=== PATIENT | female | born 1960 | race Caucasian/White ===

== ENCOUNTER 2020-11-11 09:29 | Outpatient (CLI) | payer OTHER, SELFPAY ==
--- NOTE | ~2020-11-11 | US_ITS ---
EXAMINATION: US venous doppler [facility] DATE: 11/11/2020 10:16 INDICATION: Left lower limb pain. TECHNIQUE: Grayscale ultrasound images without and with compression and Doppler ultrasound images of the bilateral lower extremity veins were obtained. COMPARISON: None. FINDINGS: The visualized portions of right common femoral vein, profunda (deep) femoral vein, femoral vein, pop liteal vein, posterior tibial veins, peroneal veins, gastrocnemius vein and greater saphenous vein ou tflow are patent. The visualized portions of left common femoral vein, profunda femoral vein, femoral vein, popliteal v ein, posterior tibial veins, peroneal veins, gastrocnemius vein and greater saphenous vein outflow ar e patent. IMPRESSION: 1. No deep venous thrombosis in either lower limb. Reviewed, dictated and finalized at location A.
--- NOTE | ~2020-11-11 | XR_ITS ---
EXAMINATION: XR knee LT 3V DATE: 11/11/2020 10:22 INDICATION: Left knee pain TECHNIQUE: Weight bearing anteroposterior, sunrise, and flexed lateral views of the left knee were ob tained COMPARISON: None. FINDINGS: Alignment is normal. No fracture. Chondrocalcinosis at the medial and lateral compartments of the kne e. Joint spaces are otherwise normal. No joint effusion. Soft tissues are unremarkable. IMPRESSION: 1. Chondrocalcinosis at the medial and lateral compartments of the left knee. Reviewed, dictated and finalized at location A.
== END 2020-11-11 09:30 | disposition home or self-care (01) ==
LOC: ANHIMG 09:33
PROVIDERS: PCP Family Medicine; Visit Provider Nurse Practitioner Family
DX: M11.262 Other chondrocalcinosis, left knee (principal); M79.605 Pain in left leg
CPT/HCPCS: 73562; 93970

== ENCOUNTER → 2020-11-22 09:46 | Outpatient (CLI) | payer OTHER, SELFPAY ==
--- NOTE | ~2020-11-22 | MR_ITS ---
EXAMINATION: MR knee LT wo con DATE: 11/22/2020 10:54 INDICATION: Analyzed left knee pain and swelling with limited range of motion. TECHNIQUE: Magnetic resonance imaging (MRI) of the left knee was performed without intravenous contra st. Sequences included coronal PD-weighted FSE, coronal PD-weighted FS FSE, sagittal T2-weighted FSE , sagittal PD-weighted FS FSE and axial PD weighted fat saturated FSE. COMPARISON: None. FINDINGS: Medial compartment: Medial meniscus is normal. Articular cartilage is normal. Lateral compartment: Small longitudinal tear, likely horizontal, extending to contact the inferior articular surface near the free edge of the lateral meniscal body. Small region of cortical irregularity with underlying mil d subarticular cystic change and edema deep to a region of likely deep chondral fissuring at the cent ral weightbearing lateral femoral condyle. Additional partial thickness chondral ulceration and fissu ring with minimal underlying cortical irregularity at the posterior weightbearing lateral femoral con dyle. Patellofemoral compartment: Articular cartilage is normal. Ligaments and tendons: Anterior and posterior cruciate ligaments are normal. The medial collateral ligament and fibular cristofer ateral ligament complex are normal. The extensor mechanism is normal. The visualized medial and later al hamstring tendons as well as the iliotibial band are normal. There is feathery muscular edema in t he proximal 4 cm of the medial head of the gastrocnemius without discrete fluid signal intensity tear defect consistent with low-grade strain. Fluid: Physiologic amount of fluid in the joint space. No loose osteochondral bodies identified. There is a multilobulated fluid collection measuring up to 2.7 x 1.1 cm in maximal transaxial dimensions and ext ending 4.5 cm proximal to distal along the posterior margin of the proximal medial head of the gastro cnemius muscle which could represent hematoma/seroma related to muscle strain or potentially cephalad extension of a Ibanez's cyst with small component to the Ibanez's cyst seen originating more inferiorl y between the semimembranosus tendon and medial head of the gastrocnemius. Osseous/other: Bone alignment is normal. No fracture or pathologic marrow replacing process. IMPRESSION: 1. Low-grade strain of the proximal aspect of the medial head of the gastrocnemius. 2. Small tear, likely longitudinal horizontal at the inner free edge of the body of the lateral menis cus. 3. Mild osteoarthritis the lateral compartment with regions of high-grade chondromalacia along the ce ntral to posterior weightbearing lateral femoral condyle. 4. Ibanez's cyst. Reviewed, dictated and finalized at location A. IMPRESSION: 1. Low-grade strain of the proximal aspect of the medial head of the gastrocnem ius. 2. Small tear, likely longitudinal horizontal at the inner free edge of the bod y of the lateral meniscus. 3. Mild osteoarthritis the lateral compartment with regions of high-grade chond romalacia along the central to posterior weightbearing lateral femoral condyle. 4. Ibanez's cyst.
== END ==
PROVIDERS: PCP Family Medicine; Visit Provider Nurse Practitioner Family
DX: M23.8X2 Other internal derangements of left knee (principal); M79.605 Pain in left leg; M79.89 Other specified soft tissue disorders; S86.812A Strain of other muscle(s) and tendon(s) at lower leg level, left leg, initial encounter; S83.282A Other tear of lateral meniscus, current injury, left knee, initial encounter; M17.12 Unilateral primary osteoarthritis, left knee; M94.262 Chondromalacia, left knee; M71.22 Synovial cyst of popliteal space [Baker], left knee
CPT/HCPCS: 73721

== ENCOUNTER 2021-01-28 00:35 | Day surgery (SDC) | payer OTHER, SELFPAY ==
[2021-01-21 08:25] VITALS: BMI 21.3
[2021-01-28] VITALS (10 sets, daily range): BP systolic 103–136; BP diastolic 63–81; PULSE 61–77; RESP 10–20; TEMP 36.5–36.6; O2SAT 95–100; BMI 21.6
--- NOTE | 2021-01-28 08:29 | WPDANESEPPF ---
Anes - Initial Pre Proc Eval Procedure: Operation Date: 01/28/21 12:30 Proposed Procedures p Left Knee Arthroscopy, Partial Medial and Lateral Meniscectomy - Deven Baker MD Date/Time: 01/28/21 08:29 Surgeon: Deven Baker MD Pre Op Diagnosis: left medial & Lateral meniscus tears Patient Data Age: 60 Gender: F Height: 1.55 m Weight: 51.26 kg Allergies Allergy/AdvReac Type Severity Reaction Status Date / Time cefuroxime Allergy Severe Gastrointestinal Verified 01/21/21 08:22 Upset Home Medications Medication Instructions Recorded Confirmed Type diclofenac sodium 50 mg 50 mg PO BID #60 tablet 12/04/20 01/21/21 Rx tablet,delayed release hydrocodone 5 mg-acetaminophen 325 1 tablet PO Q4-6H PRN #30 tablet 01/06/21 01/21/21 Rx mg tablet MDD 6 ascorbic acid (vitamin C) [Vitamin 500 mg PO DAILY 01/21/21 01/21/21 History C] fexofenadine [Lamar] 180 mg PO DAILY 01/21/21 01/21/21 History vitamin B complex [B 1 tablet PO DAILY 01/21/21 01/21/21 History Complex-Vitamin B12] Patient hx anesthesia problems: none Family hx anesthesia problems: none Results Review: All pre-operative results and documents have been reviewed as part of the pre-operative evaluation. [facility] Past Medical History Medical History (Updated 01/28/21 @ 08:30 by Zachary Sagastume DO) Abnormal MRI, knee Anxiety about health BMI 22.0-22.9, adult Herpes zoster without complication Hx of cancer of lung 2014, chemo Screening for breast cancer Screening for diabetes mellitus Screening for osteoporosis Surgical History Surgical History (Updated 01/28/21 @ 08:30 by Zachary Sagastume DO) History of hysterectomy History of lobectomy of lung right upper 1/3 History of repair of left rotator cuff (~03/03/17) Family History Family History Mother Family history of transient ischemic attacks Sibling Family history of diabetes mellitus in first degree relative Father Family history of heart disease in male family member before age 55 Other Family history of malignant neoplasm Hypertension Social History Social History Smoking packs per day: 0.5 Smoking cigarettes per day: 10.0 Years smoked: 20 Smoking pack-years: 10.00 Smoking status: Former smoker Tobacco type: cigarettes Smoking end date: 04/26/15 Alcohol intake: current Alcohol use details: RARE Substance use: never Substance use type: does not use Living arrangements: with family 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 Informed Consent: The patient's anesthetic plan and its attendant risks and benefits were discussed with the patient/family/POA. Questions were solicited and answers provided to the satisfaction of the patient/family/POA.
--- NOTE | 2021-01-28 10:12 | WPDHPUPDATE1 ---
History and Physical Update Update Date/Time: 01/28/21 10:12 History and Physical has been reviewed, including an updated exam of the patient. There are NO changes in the patient's condition. Risks, benefits, and alternatives have been discussed and questions answered. Patient agrees to proceed with procedure.
[2021-01-28] MEDS: ACETAMINOPHEN 500 MG TABLET 1000 MG PO (11:11)
[2021-01-28] MEDS: KETOROLAC 15 MG/ML VIAL (*BKC) IV PUSH (11:11)
[2021-01-28] MEDS: LACTATED RINGERS 1,000 ML 30 ML IV CONT ×2 (11:11→13:53)
[2021-01-28] MEDS: ceFAZolin 2 GM/D5W 50 ML 2 GM/50 ML BAG IVPB (12:49)
--- NOTE | 2021-01-28 13:39 | W.PM.PROC2 ---
Procedure Note - Detailed Date of Procedure 01/28/21 Pre-op Diagnosis left medial & Lateral meniscus tears Post-op Diagnosis other (Left knee lateral meniscus tear 2. Medial synovial plica 3. Chondrocalcinosis.) Procedure Performed 1. Arthroscopic partial lateral meniscectomy 2. Arthroscopic medial synovial plica excision. Surgeon Deven Baker MD Inspector Wreath Samaria العلي PA-C Anesthesia general Indications Persistent knee pain. Primarily medial. MRI showed lateral tear and chondrocalcinosis. Findings Lateral meniscus tear of inner margin. Extensive chondrocalcinosis of menisci and degenerative meniscal tissue. However, no medial tear observable. Moderate sized medial synovial plica with evidence of chondral irritation on the corresponding femoral condyle. Minimal degenerative changes. Medial femur chondromalacia grade 1, medial tibia grade 1. Lateral femur chondromalacia grade 0, lateral tibia grade 0. Patellar grade 1, trochlea grade 0. Description of Procedure The patient was identified and the surgical site confirmed and signed in the preoperative holding area. Antibiotics were started per protocol. She was brought to the operative room and transferred to the OR table. A general anesthetic was administered. Supine position with the operative lower extremity position in the leg roy after placement of a well padded tourniquet. The leg support was lowered and the contralateral limb was supported with a soft bolster. The knee was prepped and draped in the usual sterile fashion. A time-out was performed. The portal sites were marked and infiltrated with 0.5% Marcaine 20 mL. The limb was exsanguinated and the tourniquet inflated to 300 mL Hg. Standard inferolateral and inferomedial portals were established. Inflow was obtained with the saline pump. The camera was introduced. Diagnostic inspection of the joint was accomplished. The lateral meniscus was debrided with the arthroscopic shaver and punches until stable. The medial meniscus showed changes described above, but no tearing. No loose bodies found. Only mild synovitis. There was a medial synovial plica which corresponded to her area of pain, and it appeared to be causing some injury to the femoral condyle cartilage, where there were focal grade 2 changes occurring. The plica was therefore excised. The arthroscopic instruments were removed. The tourniquet released and wounds closed with subcutaneous 4-0 Monocryl absorbable suture. Steri strips and a sterile dressing were applied. A light elastic wrap was placed. The patient was extubated and brought to the recovery room in stable condition. Estimated Blood Loss 5 Drains No Complications No immediate complications Condition stable Disposition PACU
== END 2021-01-28 16:00 | disposition home or self-care (01) ==
PROVIDERS: PCP Family Medicine; Visit Provider Orthopaedic Surgery
PROC: (CPT 29870; principal; 2021-01-28 12:30)
DX: S83.282A Other tear of lateral meniscus, current injury, left knee, initial encounter (principal); M11.262 Other chondrocalcinosis, left knee; X50.0XXA Overexertion from strenuous movement or load, initial encounter; Z85.118 Personal history of other malignant neoplasm of bronchus and lung; Z92.21 Personal history of antineoplastic chemotherapy; Z90.2 Acquired absence of lung [part of]; Z87.891 Personal history of nicotine dependence
CPT/HCPCS: 29881; A9270; J0690; J1885; J2250; J2270; J7120

== ENCOUNTER 2021-05-24 17:49 | Emergency (ER) | payer OTHER, SELFPAY ==
--- NOTE | ~2021-05-24 | CT_ITS ---
EXAMINATION: CT cervical spine wo con DATE: 05/24/2021 18:54 INDICATION: Left hand paresthesias TECHNIQUE: Computed tomography (CT) of the cervical spine was performed without intravenous contrast. Automated exposure control and iterative reconstruction technique were employed. Exam dose: 114.83 mGy-cm total exam DLP. COMPARISON: None FINDINGS: There is prominent reversal of cervical curvature. C1 and C2 are normally aligned and the odontoid process is intact. No fracture or dislocation or lock ed facet or prevertebral soft tissue swelling. There is mild degenerative disc disease at C3-4 and C4-5. There is severe degenerative disc disease and prominent posterior spurring at C5-6 and C6-7. There is degenerative change at the apophyseal joints, especially in the upper and mid cervical spine bilaterally. There is very prominent spurring at the uncovertebral joints at C5-6 and C6-7 encroaching upon the C6 and C7 neural foramina bilaterally. Bilateral cervical ribs, the left cervical rib fused distally with the left first rib.. Incidentally noted is emphysematous change of the included upper lungs. IMPRESSION: Prominent reversal of cervical curvature Extensive cervical spondylosis as indicating greater detail above No fracture or dislocation, locked facet or prevertebral soft tissue swelling Reviewed, dictated and finalized at Location [facility]. Reviewed, dictated and finalized at location A. Y MACHINE OPERATOR
--- NOTE | ~2021-05-24 | CT_ITS ---
EXAMINATION: CT brain wo con DATE: 05/24/2021 18:54 INDICATION: Dizziness. Lightheadedness. Left upper extremity paresthesias. TECHNIQUE: Computed tomography (CT) of the head was performed without intravenous contrast. The mA wa s adjusted according to patient size. Iterative reconstruction technique was employed. Exam dose: 60 5.33 mGy-cm total exam DLP. COMPARISON: None FINDINGS: Bilateral carotid siphon internal carotid artery calcifications. No intracranial mass lesion or hemorrhage or cerebrovascular accident. No midline shift or mass effec t effect. No subdural or epidural hematoma. No fracture or bone destruction of the cranial vault. The mastoid air cells and included paranasal si nuses are normally developed and aerated. IMPRESSION: Intracranial atherosclerosis No acute intracranial abnormality Reviewed, dictated and finalized at Location [facility]. Reviewed, dictated and finalized at location A. ICAL SCIENCES PROFESSOR
--- NOTE | ~2021-05-24 | XR_ITS ---
XR chest 2V DATE: 05/24/2021 18:46 INDICATION: Chest pain TECHNIQUE: PA and lateral views COMPARISON: 09/14/2018 PA chest FINDINGS: Normal heart size. There is aortic unfolding. No hilar or mediastinal enlargement is eviden t. There is bilateral apical capping. There is chronic mild tenting of the right leaf of the diaphrag m. History right upper lobectomy. No pulmonary infiltrate or consolidation, pleural effusion or pulmonar y vascular congestion or pneumothorax is detected. There is degenerative disc disease in the lower cervical spine. There is diffuse osteopenia. IMPRESSION: No active cardiopulmonary disease or significant change since 09/14/2018 Reviewed, dictated and finalized at location A. ICATION SECURITY ARCHITECT IMPRESSION: No active cardiopulmonary disease or significant change since 2018
--- NOTE | ~2021-05-24 | CT_ITS ---
EXAMINATION: CTA chest PE protocol DATE: 05/24/2021 19:49 INDICATION: Chest pain. Elevated d-dimer. TECHNIQUE: Computed tomography angiography (CTA) of the chest was performed with 100 mL Omnipaque-350 intravenous contrast timed to evaluate the pulmonary arteries. Coronal maximum intensity projection 3D-reconstructions were created by the technologist. Automated exposure control and iterative reconst ruction technique were employed. Exam dose: 132.60 mGy-cm total exam DLP. COMPARISON: 05/24/2021 2 view chest FINDINGS: There is diagnostic contrast enhancement of the pulmonary arteries and no evidence of pulmo nary embolism. No thoracic aortic aneurysm or dissection. Normal heart size. No hilar or mediastinal mass lesion or lymphadenopathy. Status post right upper lobe resection. There are emphysematous changes. No pulmonary infiltrate or c onsolidation or pulmonary mass lesion is evident. Prominent degenerative disc disease in lower cervical spine. No suspicious osteolytic or osteoblastic lesions. IMPRESSION: No evidence of pulmonary embolism Status post right upper lobectomy Emphysema Reviewed, dictated and finalized at [facility]. Reviewed, dictated and finalized at location A. GLE CATCHER
[2021-05-24 17:52] VITALS: BP 168/95; PULSE 87; RESP 16; TEMP 36.4; O2SAT 100
--- NOTE | 2021-05-24 17:52 | ECG_ITS ---
Measurements Intervals [place] Rate: 74 P: 57 [place]: 126 QRS: 64 QRSD: 94 T: 53 QT: 381 QTc: 423 Interpretive Statements SINUS RHYTHM INCOMPLETE RIGHT BUNDLE BRANCH BLOCK BORDERLINE ST-T WAVE ABNORMALITY- ANTEROLAT/INF LEADS BASELINE ARTIFACT- AVR, AVL, V1 BORDERLINE ECG Electronically Signed On 05-24-2021 20:38:38 LINING SEWER by Viet Mayo D.O.
[2021-05-24 18:09] VITALS: BP 155/94; PULSE 76; RESP 20; O2SAT 99
[2021-05-24 18:21] VITALS: PULSE 76
[2021-05-24 18:22] VITALS: O2SAT 100
[2021-05-24 18:27] LABS: Basophils Percent Auto 0.2 % (0.2-1.2); Eosinophils Percent Auto 0.4 % (0-4.4); Hematocrit 37.5 % (37.0-47.0); Hemoglobin 12.5 g/dL (12.0-15.0); Immature Granulocyte Absolute 0.02 K/mm3 (0.00-0.031); Immature Granulocyte Percent A 0.4 % (0-0.5); Lymphocytes Absolute Auto 1.38 K/mm3 (0.9-3.2); Mean Corpuscular HGB Conc 33.3 g/dl (32-36); Mean Corpuscular Hemoglobin 30.2 pg (26-34); Mean Corpuscular Volume 90.6 fl (80-100); Mean Platelet Volume 8.9 fl (7.4-10.4); Monocytes Absolute Auto 0.3 K/mm3 (0.1-0.6); Monocytes Percent Auto 6.7 % (2.6-8.5); Neutrophils Absolute Auto 3.2 K/mm3 (1.3-6.7); Neutrophils Percent Auto 64.3 % (45.5-73.1); Platelet Count Result 274 k/mm3 (150-375); Red Blood Count 4.14 M/mm3 (4.2-5.4); Red Cell Distribution Width 13.9 % (11.5-14.5); White Blood Count 4.9 K/mm3 (4.5-10.0)
[2021-05-24] MEDS: ASPIRIN 81 MG CHEWABLE TABLET 324 MG PO (18:27)
[2021-05-24 18:36] LABS: INR 0.9; Prothrombin Time 11.6 Seconds (11.1-14.7)
[2021-05-24 18:37] LABS: Partial Thromboplastin Time 28.8 SECONDS (22.3-36.8)
[2021-05-24 18:41] LABS: Alanine Aminotransferase 18 U/L (4-35); Alkaline Phosphatase 69 U/L (38-126); Anion Gap 7 mmol/L (8-16); Aspartate Amino Transferase 27 U/L (14-36); Bilirubin,Total 0.4 mg/dL (0.2-1.3); Blood Urea Nitrogen 7 mg/dL (7-17); Calcium 10.1 mg/dL (8.4-10.2); Carbon Dioxide 29 mmol/L (22-30); Chloride 99 mmol/L (98-107); Estimated CRCL calculation 65 ml/min; Estimated Glomerular Filt Rate > 60; Glucose 103 mg/dL (65-110); Lipase 84 U/L (23-300); Potassium 3.2 mmol/L (3.4-5.0); Sodium 135 mmol/L (137-145)
[2021-05-24 18:47] LABS: D Dimer 2.24 ug/mL (<0.48)
--- NOTE | 2021-05-24 18:48 | ED.CHESTPAIN ---
HPI - Chest Pain General Chief Complaint: Chest Pain Stated Complaint: chest pain Time Seen by Provider: 05/24/21 18:29 Source: patient Mode of arrival: ambulatory Limitations: no limitations History of Present Illness HPI narrative: This is a 60 year old female that presents to the ER with multiple complaints. Reports over the last couple of days she has had several dizzy spells. Reports she has sudden onset of room spinning dizziness that lasts very briefly. Also reports this morning she started to have chest tightness and pain in her upper back. Reports over the last couple of hours she has noted tingling in her left fingers. Also reports a headache. Denies fever, vision changes, shortness of breath, vomiting, lower extremity edema, numbness or weakness. Related Data Home Medications Medication Instructions Recorded Confirmed ascorbic acid (vitamin C) [Vitamin 500 mg PO DAILY 01/21/21 04/10/21 C] vitamin B complex [B 1 tablet PO DAILY 01/21/21 04/10/21 Complex-Vitamin B12] azelastine INTRANASAL 05/24/21 clobetasol TOPICAL 05/24/21 Allergies Allergy/AdvReac Type Severity Reaction Status Date / Time cefuroxime Allergy Severe Gastrointestinal Verified 05/24/21 18:16 Upset Review of Systems Review of Systems: CONSTITUTIONAL: Denies fever EYES: Denies visual changes CARDIOVASCULAR: Reports chest pain. Denies edema. RESPIRATORY: Denies cough or dyspnea. GASTROINTESTINAL: Denies vomiting MUSCULOSKELETAL: Reports back pain, joint pain, and myalgia. NEUROLOGIC: Reports headache. Denies numbness, or weakness. All systems reviewed & are unremarkable except as noted in HPI and below PMFSH Past Medical History Medical History Abnormal MRI, knee Anxiety about health BMI 22.0-22.9, adult Herpes zoster without complication Hx of cancer of lung 2014, chemo Screening for breast cancer Screening for diabetes mellitus Screening for osteoporosis Surgical History Surgical History History of hysterectomy History of lobectomy of lung right upper 1/3 History of meniscectomy of left knee (~01/28/21) Partial Medial & Lateral History of repair of left rotator cuff (~03/03/17) Family History Family History Mother Family history of transient ischemic attacks Sibling Family history of diabetes mellitus in first degree relative Father Family history of heart disease in male family member before age 55 Other Family history of malignant neoplasm Hypertension Social History Social History Smoking packs per day: 0.5 Smoking cigarettes per day: 10.0 Years smoked: 20 Smoking pack-years: 10.00 Smoking status: Former smoker Tobacco type: cigarettes Smoking end date: 04/26/15 Alcohol intake: current Alcohol use details: RARE Substance use: never Substance use type: does not use 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 HEAD: Normocephalic, atraumatic. EYES: PERRLA and EOMI. ENT: Nares clear, no rhinorrhea or epistaxis. Mucous membranes moist. Oropharynx without tonsillar hypertrophy exudate or other lesions. Bilateral TMs pearly vargas non-bulging NECK: Supple. No adenopathy or masses. CHEST: Clear to auscultation. No respiratory distress. No wheezes rales or rhonchi HEART: Regular rate and rhythm. No murmur heard. Normal peripheral pulses. ABDOMEN: Soft, nontender, nondistended, normal active bowel sounds. EXTREMITIES: Normal range of motion. No edema. Strength equal in bilateral upper and lower extremities (5/5) SKIN: Warm, dry, no rash. NEURO: No focal d
[2021-05-24 18:53] LABS: Troponin I < 0.012 ng/mL (0.000-0.034)
[2021-05-24] MEDS: SODIUM CHLORIDE 0.9% IV 500 ML 999 ML IV CONT (19:03)
[2021-05-24] MEDS: ONDANSETRON INJ 4 MG/2 ML VIAL IV PUSH (19:03)
[2021-05-24] MEDS: MECLIZINE HCL 25 MG TABLET PO (19:04)
[2021-05-24] MEDS: POTASSIUM CHLORIDE 20 MEQ PACKET (FOR LIQUID) 40 MEQ PO (19:04)
--- NOTE | 2021-05-24 19:12 | PC.NURSE ---
Medications given IV and po. Report to CORI Liu, to continue care.
[2021-05-24] MEDS: diazePAM INJ (*CRX) 10 MG/2 ML SYRINGE 5 MG IV PUSH (20:28)
[2021-05-24 20:37] VITALS: BP 130/92; PULSE 87; RESP 15; O2SAT 97
[2021-05-24 21:40] LABS: Troponin I < 0.012 ng/mL (0.000-0.034)
[2021-05-24 21:55] LABS: SARS-CoV-2 RNA PCR Negative
[2021-05-24 22:20] VITALS: PULSE 76; RESP 18; O2SAT 98
== END 2021-05-24 23:05 | disposition home or self-care (01) ==
PROVIDERS: Physician Assistant; Emergency Provider Emergency Medicine; PCP Family Medicine
DX: R42 Dizziness and giddiness (principal); R20.2 Paresthesia of skin; M62.838 Other muscle spasm; E87.6 Hypokalemia; Z20.822 Contact with and (suspected) exposure to COVID-19; Z85.118 Personal history of other malignant neoplasm of bronchus and lung; Z92.21 Personal history of antineoplastic chemotherapy; Z90.2 Acquired absence of lung [part of]; Z87.891 Personal history of nicotine dependence; I45.10 Unspecified right bundle-branch block; R94.31 Abnormal electrocardiogram [ECG] [EKG]; J43.9 Emphysema, unspecified
CPT/HCPCS: 36415; 70450; 71046; 71275; 72125; 80053; 83690; 84484; 85025; 85380; 85610; 85730; 93005; 96361; 96365; 96375; 99284; A9270; C9803; J0131; J2405; J3360; J7040; Q9967; U0003; U0005

== ENCOUNTER → 2022-12-02 13:07 | Outpatient (CLI) | payer OTHER, SELFPAY ==
--- NOTE | ~2022-12-02 | XR_ITS ---
Right Shoulder Technique: AP and axillary views were obtained. Clinical History: Pain Findings: No fracture or dislocation is seen. Osseous alignment is anatomic. The glenohumeral and acr omioclavicular joint spaces are preserved. Soft tissues are unremarkable. Impression: Unremarkable right shoulder radiographs. Reviewed, dictated and finalized at [facility] [place]. Impression: Unremarkable right shoulder radiographs.
== END ==
PROVIDERS: PCP Family Medicine; Visit Provider Nurse Practitioner Family
DX: M25.511 Pain in right shoulder (principal)
CPT/HCPCS: 73030

== ENCOUNTER 2023-05-27 14:34 | Outpatient (CLI) | payer BC, SELFPAY ==
--- NOTE | ~2023-05-27 | XR_ITS ---
XR shoulder RT min 2V DATE: 05/27/2023 14:52 INDICATION: Right shoulder pain for 2 weeks. No known injury. TECHNIQUE: 5 views COMPARISON: 12/02/2022 right shoulder FINDINGS: Bilateral degenerative disc disease and prominent uncovertebral joint spurring is noted at C6-7 and C7-T1. Osteopenia. No fracture or dislocation, periosteal reaction or bone destruction or abnormal soft tissue calcifica tion of the right shoulder. Acromioclavicular and glenohumeral joint spaces appear intact. No abnorma l right shoulder calcification. Partial right lung resection. IMPRESSION: Osteopenia No fracture or dislocation or bone destruction of the right shoulder Degenerative disc disease and uncovertebral joint spurring at C6-7 and C7-T1 Reviewed, dictated and finalized at location L. WARE DESIGN ANALYST
== END 2023-05-27 14:35 | disposition home or self-care (01) ==
PROVIDERS: PCP Family Medicine; Visit Provider Orthopaedic Surgery
DX: M85.811 Other specified disorders of bone density and structure, right shoulder (principal); M50.323 Other cervical disc degeneration at C6-C7 level; M51.34 Other intervertebral disc degeneration, thoracic region
CPT/HCPCS: 73030

== ENCOUNTER 2023-07-19 07:32 | Outpatient (CLI) | payer BC, SELFPAY ==
--- NOTE | ~2023-07-19 | MR_ITS ---
EXAMINATION: MR shoulder RT wo con DATE: 07/19/2023 08:14 INDICATION: Right shoulder impingement syndrome TECHNIQUE: Magnetic resonance imaging (MRI) of the right shoulder was performed without intravenous c ontrast. Sequences included axial PD-weighted FS FSE, coronal oblique PD-weighted FS FSE, coronal obl ique T2-weighted FS FSE, sagittal PD-weighted FS FSE, and sagittal T1-weighted SE. COMPARISON: None. FINDINGS: Coracoacromial arch: The acromion undersurface is curved in morphology (type II). The coracoacromial ligament is normal. M oderate acromioclavicular osteoarthritis. Rotator cuff: The supraspinatus, infraspinatus and teres minor tendons are normal. [Subscapularis tendinopathy with out discrete tear. Normal rotator cuff muscle bulk and signal. Biceps tendon, glenoid labrum and glenohumeral cartilage: Long head of the biceps tendon is normal. There is a tear at the base of the 10:00-11:00 position of the posterosuperior glenoid labrum. There is possible additional small tear versus normal sublabral f oramen at the anterosuperior glenoid. Glenohumeral cartilage is normal. Fluid: Physiologic amount of fluid in the glenohumeral joint and biceps tendon sheath. No loose osteochondr al bodies. Small amount of fluid in the subacromial/subdeltoid bursa consistent with mild bursitis. T here is a moderate-sized ganglion cyst extending for 3.2 cm from anterior inferiorly from the anterio r margin of the coracoid process which measures up to 1.1 x 1.6 cm in maximal orthogonal dimensions t his likely represents extension from an additional 5 x 5 x 3 mm ganglion cyst along the posterior mar gin of the coracoid process which appears to extend along the coracohumeral ligament. This could pote ntially represent para labral cysts related to the suspected tear of the anterosuperior labrum. Bones: Normal marrow signal with no edema, fracture or abnormal marrow replacing process. IMPRESSION: 1. Tear of the posterosuperior labrum and separate likely additional small tear at the anterosuperior labrum with differential for the latter including a normal sublabral foramen. There is a ganglion cy st potentially representing a para labral cyst arising from the suspected anterosuperior tear which t racks along the coracohumeral ligament and 3.2 cm further caudally from the anterior margin of the co racoid process. 2. Mild subscapular tendinopathy without tear. 3. Moderate acromioclavicular osteoarthritis and mild underlying subacromial/subdeltoid bursitis. Reviewed, dictated and finalized at location A. IMPRESSION: 1. Tear of the posterosuperior labrum and separate likely additional small tear at the anterosuperior labrum with differential for the latter including a norm al sublabral foramen. There is a ganglion cyst potentially representing a para labral cyst arising from the suspected anterosuperior tear which tracks along t he coracohumeral ligament and 3.2 cm further caudally from the anterior margin of the coracoid process. 2. Mild subscapular tendinopathy without tear. 3. Moderate acromioclavicular osteoarthritis and mild underlying subacromial/orourke bdeltoid bursitis.
== END 2023-07-19 07:33 | disposition home or self-care (01) ==
LOC: ANHIMG 07:34
PROVIDERS: PCP Family Medicine; Visit Provider Orthopaedic Surgery
DX: M75.41 Impingement syndrome of right shoulder (principal); M19.011 Primary osteoarthritis, right shoulder
CPT/HCPCS: 73221

== ENCOUNTER 2023-11-02 01:53 | Day surgery (SDC) | payer BC, SELFPAY ==
[2023-10-25 11:29] VITALS: BMI 20.6
--- NOTE | 2023-10-25 11:37 | PC.NURSE ---
Report to the Outpatient Waiting Room, entrance under the green pavilion located off [facility], at time _0630_ on date _[id number]_. Planned Procedure Time: _0830_. Time changes happen often and if your time is changed the preop area will call you the afternoon before. - You and your visitor will be asked to self-screen and do not enter if you have any COVID symptoms. - A mask is optional within the hospital at this time. Patients may have clear liquids (water, carbonated beverages, clear teas, apple juice) until 3 hours prior to surgery with a maximum of 20 ounces. - No food from midnight until time of surgery Take the following medications with a SIP of water the morning of surgery: ____None DO NOT STOP ANY OF YOUR OTHER PRESCRIPTION MEDICATIONS PRIOR TO SURGERY ?EXCEPT THE FOLLOWING Medications to discontinue per physician Vitamins Date to take last [id number] Please no make-up, nail luxembourgish, hairspray, perfume, deodorant, or body powder the day of surgery. No jewelry (including any body piercings) or valuables the day of surgery, leave them at home. Please take a shower or bath the night before, or the morning of, surgery with an antibacterial soap. Wear comfortable, loose fitting clothing. - Jewelry must be removed prior to entering the operating room. Rings and piercings that are not removed may be cut off. - The hospital will not accept responsibility for valuables. - Please leave all valuables, including medications, at home the day of surgery. If you are going home after surgery, a licensed [facility] driver must drive you home. - NO public transportation without another adult if you receive anesthesia. - We recommend that an adult stay with you for 24 hours following discharge. - We also recommend that you do not drive, make important decision, drink alcoholic beverages, or take any drugs that were not prescribed by your health care provider for at least 24 hours after your discharge time. Follow any additional instructions given to you from your surgeon. If you or anyone in your household have experienced Covid symptoms in the past week, please notify your surgeon or the nurse liaison at the phone number below for possible testing. Telephone instructions given to __Socorro__and asked if any additional questions and then verbalized understanding. Patient advised to call surgeon office or pre surgery nurse liaison [phone] if any additional questions.
--- NOTE | 2023-11-01 13:13 | P.PNAN_ITS ---
Anes - Initial Pre Proc Eval Procedure: Operation Date: 11/02/23 08:30 Proposed Procedures p Right Shoulder Arthroscopic Labral Debridement, Cyst and Subacromial Decompression - Deven Baker MD Date/Time: 11/01/23 13:13 Surgeon: Deven Baker MD Pre Op Diagnosis: right shoulder superior glenoid labral tear Patient Data Age: 62 Gender: F Height: 1.55 m Weight: 49.5 kg Allergies Allergy/AdvReac Type Severity Reaction Status Date / Time cefuroxime AdvReac Severe Gastrointestinal Verified 11/02/23 07:03 Upset Home Medications Medication Instructions Recorded Confirmed Type ascorbic acid (vitamin C) 500 mg 500 mg PO DAILY 01/21/21 10/25/23 History tablet (Vitamin C) vitamin B complex (B 1 tablet PO DAILY 01/21/21 10/25/23 History Complex-Vitamin B12 tablet) clobetasol 0.05 % scalp solution 1 applic topical DAILY 05/24/21 10/25/23 History Patient hx anesthesia problems: none Family hx anesthesia problems: none Results Review: All pre-operative results and documents have been reviewed as part of the pre- operative evaluation. [facility], [facility] Past Medical History Medical History Abnormal MRI, knee Anxiety about health BMI 20.0-20.9, adult BMI 22.0-22.9, adult Herpes zoster without complication Hx of cancer of lung 2014, chemo Screening for breast cancer Screening for diabetes mellitus Screening for osteoporosis Urinary tract infection Surgical History Surgical History History of hysterectomy History of lobectomy of lung right upper 1/3 History of meniscectomy of left knee (~01/28/21) Partial Medial & Lateral History of repair of left rotator cuff (~03/03/17) Family History Family History Mother Family history of transient ischemic attacks Diabetes mellitus Sibling Family history of diabetes mellitus in first degree relative Diabetes mellitus Heart disease Father Family history of heart disease in male family member before age 55 Heart disease Diabetes mellitus Thyroid activity decreased Other Family history of malignant neoplasm Hypertension Social History Social History Smoking packs per day: 0.5 Smoking cigarettes per day: 10.0 Years smoked: 30 Smoking pack-years: 15.00 Smoking status: Former smoker Tobacco type: cigarettes Smoking end date: 10/24/13 Alcohol intake: current Alcohol use details: RARE Substance use: never Substance use type: does not use Do You Feel Safe in your Home?: Yes Lack of Transportation: No Lack of Food: Never True Current Housing: I Have Housing Concerned About Future Housing: No Difficulty Paying Gas/Electric Bills: No Difficulty Paying for Meds: No Currently Unemployed: No Education: Associate Degree Difficulty w/ Childcare or Family Care: No Living arrangements: with family Occupation/Education: occupation 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 Informed Consent: The patient's anesthetic plan and its attendant risks and benefits were discussed with the patient/family/POA. Questions were solicited and answers provided to the satisfaction of the patient/family/POA.
[2023-11-02] VITALS (8 sets, daily range): BP systolic 121–153; BP diastolic 77–98; PULSE 57–82; RESP 14–17; TEMP 36.3–36.9; O2SAT 100; BMI 19.8
[2023-11-02] MEDS: KETOROLAC 15 MG/ML VIAL (*BKC) IV PUSH (07:13)
[2023-11-02] MEDS: ACETAMINOPHEN 500 MG TABLET 1000 MG PO (07:13)
[2023-11-02] MEDS: LACTATED RINGERS 1,000 ML 30 ML IV CONT ×2 (07:21→10:11)
--- NOTE | 2023-11-02 07:50 | WPDHPUPDATE1 ---
History and Physical Update Update Date/Time: 11/02/23 07:50 History and Physical has been reviewed, including an updated exam of the patient. There are NO changes in the patient's condition. Risks, benefits, and alternatives have been discussed and questions answered. Patient agrees to proceed with procedure.
--- NOTE | 2023-11-02 07:59 | WPDANESPNB ---
Anes - Peripheral Nerve Block Date/Time: 11/02/23 07:59 I have discussed with the patient/family/POA the placement of a peripheral nerve block for post-operative pain management, including associated risks, benefits, complications, and side effects. Alternative methods of post-operative analgesia were detailed. Questions were solicited and answers provided to the satisfaction of the patient/family/POA. Time-Out: A pre-procedural Time-Out was completed immediately before starting the procedure and confirmed: Patient Identification, Site, Procedure, Patient Position and the Availability of Requisite Equipment. Clinical Indications: Acute post-operative pain management requested by the operative surgeon. Nerve Block Insertion Note Anes-nerve block: interscalene right Patient position: supine Skin prep: chlorhexidine Needle: 22 gauge, stimulating, insulated echogenic needle. Needle length: 50 mm Technique: ultrasound Injectate: bupivacaine 0.5% with epi 5 mcg/ml (30cc- no epi) Observations: tolerated well Complications: none Procedure start time:: 0750 Procedure end time:: 754
[2023-11-02] MEDS: CLINDAMYCIN 900 MG/D5W 50 ML 900 MG/50 ML PIGGYBACK 50 MG IVPB (08:30)
[2023-11-02] MEDS: EPINEPHrine HCL INJ 1 MG/ML AMPUL 3 MG IRRIGATION (09:17)
--- NOTE | 2023-11-02 10:20 | P.OP_ITS ---
Procedure Note - Detailed Date of Procedure 11/02/23 Pre-op Diagnosis Right shoulder superior glenoid labral tear. Post-op Diagnosis Other (Right shoulder 1. Partial thickness rotator cuff tear 2. Subacromial impingement 3. SLAP tear with labral cyst ) Procedure Performed Right shoulder 1. Arthroscopic rotator cuff repair 2. Arthroscopic subacromial decompression 3. Arthroscopic biceps tenodesis 4. Arthroscopic labral labral debridement with cyst excision Surgeon Deven Baker MD Cracking Machine Operator Samaria العلي PA-C Anesthesia General and Regional ( interscalene block) Indications Severe, debilitating anterior shoulder pain with large anterior labral cyst, extending atypically medial to the coracoid. Associated labral tears and tendinosis noted also on the MRI. Failed conservative treatment with injection and therapy. Findings Mid grade (30%) partial thickness supraspinatus cuff tear. A2 articular and B1 bursal side. Treated optimally with Regeneten collagen implant with 4 CARMEN soft tissue anchors and 2 Peek bone anchors. Unstable SLAP tear with anterior labral extension. Consistent with MRI findings of a large anterior paralabral cyst extending anterior and medial. This was debrided and the cyst decompressed. Quirino ps tenodesis performed arthroscopically with a Swivel lock anchor. Clear evidence for subacromial impingement with notable fraying of the anterolateral acromion and CA ligament with a lesion on the bursal side cuff, treated with decompression. There was thickening of the bursa anteriorly contiguous with the rotator interval tissue, which was partially excised. The articular cartilage was healthy. Description of Procedure Preoperative antibiotics were given. An interscalene block was administered in the preoperative area. The patient was bought brought to the operating room. A general anesthetic was administered. The patient was carefully positioned in the [beach chair] position. The head and neck were carefully positioned. The non operative extremity was also carefully positioned. The shoulder was prepped and draped in the usual sterile fashion. Examination was performed without abnormal findings. Very small stature. Standard posterior and anterior arthroscopic portals were established. Inflow achieved with the arthroscopic pump using saline and epinephrine. The glenohumeral joint was carefully inspected. The SLAP tear and labral tears were identified and debrided. The anterior defect was probed deeply and decompressed with suction and milking the subcutaneous anterior cyst extension. The biceps anchor was unstable and degenerative. Arthroscopic biceps tenodesis was performed, and the tendon released from the labrum. The RF probe was also utilized to stabilize the labrum. The subscapularis showed minimal superior fraying. The articular supraspinatus was torn to about 20 percent. The cable was intact and the tissue was otherwise healthy in appearance. Attention was turned to the subacromial space. A complete bursectomy was performed. The rotator cuff and footprint were lightly debrided. A modest acromioplasty was performed. The low grade bursal tear was debrided and the Regeneten implant introduced to cover the supraspinatus footprint. Two additional portals were utilized. The implant was fixed with 4 CARMEN soft tissue anchors and 2 Peek bone anchors. The arthroscopic instruments were removed. The wounds were closed with 3-0 Monocryl subcuticular suture and steri strips. There were no complications. A sling was applied and the patient brought to the recovery room. Physician facilities maintenance assistant, Samaria العلي PA-C, required for surgery; including patient positioning, draping, arthroscopic camera operation, maintaining instrument position, suture retrieval, implant insertion, wound closure, and dressing and sling placement. Implants Regeneten collagen implant. 4 CARMEN soft tissue anchors, 2 Peek bone anchors. 4.75 Swivel lock anchor. Estimated Blood Loss 10 Pathology None sent Complications No immediate complications Condition Stable Disposition PACU [facility] Billing Surgery - Charge Forward: Surgery Billing
--- NOTE | 2023-11-02 12:00 | SUR.PHASEII ---
1140 SMALL RED BRUISE TO LEFT CHEEK AND VERY SMALL BRUISE TO LEFT NECK. WHEN ASSISTING PATIENT GET DRESSED, LARGE RED-PURPLE BRUISE NOTED TO MIDLINE SLIGHTLY RIGHT UPPER CHEST. DR. CUENCA NOTIFIED. KEVIN Valenzuela CAME OUT OF OR TO CHECK PATIENT, TOOK PHOTOS AND MARKED OUTLINE OF BRUISING. DR. CUENCA OKAY'D FOR PATIENT TO GO HOME. PATIENT EAGER TO GO HOME.
== END 2023-11-02 12:14 | disposition home or self-care (01) ==
PROVIDERS: PCP Family Medicine; Visit Provider Orthopaedic Surgery
PROC: (CPT 29805; principal; 2023-11-02 08:30)
DX: S43.431A Superior glenoid labrum lesion of right shoulder, initial encounter (principal); M75.41 Impingement syndrome of right shoulder; M67.411 Ganglion, right shoulder; M75.111 Incomplete rotator cuff tear or rupture of right shoulder, not specified as traumatic; Z85.118 Personal history of other malignant neoplasm of bronchus and lung; Z87.891 Personal history of nicotine dependence; G89.18 Other acute postprocedural pain
CPT/HCPCS: 64415; 29827; 29828; 29826; A4565; A9270; C1713; J0171; J1100; J1885; J2250; J2405; J2704; J3010; J7120

== ENCOUNTER 2024-05-13 08:47 | Outpatient (CLI) | payer BC, SELFPAY ==
--- NOTE | ~2024-05-13 | MR_ITS ---
EXAMINATION: MR shoulder RT wo con DATE: 05/13/2024 09:44 INDICATION: Anterior right shoulder pain. TECHNIQUE: Magnetic resonance imaging (MRI) of the right shoulder was performed without intravenous c ontrast. Sequences included axial PD-weighted FS FSE, coronal oblique PD-weighted FS FSE and T2-weigh marleny FS FSE, and sagittal oblique T2-weighted FS FSE and T1-weighted FSE. COMPARISON: Right shoulder MRI 07/19/2023, radiographs 05/27/2023 FINDINGS: Coracoacromial arch: The acromion undersurface is flat in morphology (type I). There is severe acromioclavicular joint ost eoarthritis. There is mild subacromial/subdeltoid bursitis. Rotator cuff: There is mild supraspinatus and infraspinatus tendinopathy. There is an articular sided partial thick ness tear of supraspinatus and infraspinatus tendons measuring 11 mm anterior to posterior by 14 mm p roximal to distal by 40% tendon thickness. There is bursal-sided fraying of supraspinatus and infrasp inatus tendons. Teres minor tendon is normal. Subscapularis tendon is normal. There is no asymmetric fatty atrophy of the rotator cuff muscle bellies. Biceps tendon and glenoid labrum: Biceps tendon is in bicipital groove. There are changes of biceps tenodesis with screw. There is a te ar of superior glenoid labrum from 10:00 to 2:00 (SLAP tear). Fluid: There is no glenohumeral joint effusion. Bones/cartilage: Glenoid cartilage is normal. Humeral head cartilage is normal. IMPRESSION: 1. Partial thickness rotator cuff tear. 2. Severe acromioclavicular joint osteoarthritis. 3. Biceps tenodesis. 4. SLAP tear. 5. Mild subacromial/subdeltoid bursitis. Reviewed, dictated and finalized at location A. HT AGENT
== END 2024-05-13 08:48 | disposition home or self-care (01) ==
LOC: MICIMG 08:48
PROVIDERS: PCP Family Medicine; Visit Provider Physician Assistant Surgical
DX: Z98.890 Other specified postprocedural states (principal); M19.011 Primary osteoarthritis, right shoulder; M75.101 Unspecified rotator cuff tear or rupture of right shoulder, not specified as traumatic; M75.51 Bursitis of right shoulder
CPT/HCPCS: 73221